=== PATIENT | male | born 1945 | race Two or more races ===

== ENCOUNTER 2022-07-22 11:15 | Emergency (ER) | payer OTHER ==
[~2022-07-22] VITALS: Ht 170.2 cm; Wt 91.6 kg
[2022-07-22] MEDS ORDERED: CRESTOR40 MG PO (11:37)
[2022-07-22] MEDS ORDERED: AVAPRO300 MG PO (11:38)
== END 2022-07-22 15:56 | disposition home or self-care (01) ==
LOC: ER 11:15
DX: N18.30 Chronic kidney disease, stage 3 unspecified (principal); D64.9 Anemia, unspecified; Z86.73 Personal history of transient ischemic attack (TIA), and cerebral infarction without residual deficits; E11.9 Type 2 diabetes mellitus without complications; E03.9 Hypothyroidism, unspecified

== ENCOUNTER 2022-08-22 06:18 | Inpatient (IN) | payer OTHER ==
[~2022-08-22] VITALS: Ht 170.2 cm; Wt 90.7 kg
[~2022-08-22 06:18] MED LIST: AVAPRO300 MG PO; CRESTOR40 MG PO
[2022-08-22] MEDS ORDERED: PANTOPRAZOLE SO40 MG PO (06:25)
[2022-08-22] MEDS ORDERED: ADULT LOW DOSE81 M1 PO (06:25)
[2022-08-22] MEDS ORDERED: GLIMEPIRIDE1 M1 PO (06:26)
[2022-08-22] MEDS ORDERED: CRESTOR40 MG PO (06:26)
[2022-08-22] MEDS ORDERED: ZYLOPRIM100 M1 PO (06:27)
[2022-08-22] MEDS ORDERED: NIFEDIPINE ER30 M1 PO (06:27)
[2022-08-22] MEDS ORDERED: ALDACTONE25 MG PO (06:27)
[2022-08-22] MEDS ORDERED: AVAPRO300 MG PO (06:29)
[2022-08-22] MEDS ORDERED: HYDRALAZINE HCL50 MG PO (06:30)
[2022-08-23] MEDS ORDERED: B-122500 MCG (09:32)
[2022-08-23] MEDS ORDERED: CARVEDILOL12.5 M1 (09:32)
[2022-08-23] MEDS ORDERED: VITAMIN B-1100 MG (09:32)
[2022-08-23] MEDS ORDERED: VITAMIN D3250 MCG (09:32)
[2022-08-23] MEDS ORDERED: ALLOPURINOL300 MG (09:32)
[2022-08-23] MEDS ORDERED: FARXIGA10 MG (09:33)
[2022-08-23] MEDS ORDERED: ACARBOSE50 MG (09:33)
[2022-08-23] MEDS ORDERED: HYDROCHLOROTHIA50 MG (09:33)
[2022-08-23] MEDS ORDERED: DOXAZOSIN MESYLA8 MG (09:33)
[2022-08-23] MEDS ORDERED: METFORMIN HCL1000 M3 (09:33)
[2022-08-23] MEDS ORDERED: GLIMEPIRIDE4 M1 (09:33)
[2022-08-23] MEDS ORDERED: FOLIC ACID1 MG (09:33)
== END 2022-08-24 19:52 | disposition home or self-care (01) | DRG 641 ==
LOC: ER 06:18 → MEDI 17:22
PROVIDERS: ADMIT Internal Medicine; ATTEND Internal Medicine
PROC: B246ZZZ Ultrasonography of Right and Left Heart (ICD-10-PCS; principal; 2022-08-22)
PROC: 4A12X4Z Monitoring of Cardiac Electrical Activity, External Approach (ICD-10-PCS; 2022-08-22)
DX: E87.5 Hyperkalemia (principal); N17.8 Other acute kidney failure; E86.0 Dehydration; K52.9 Noninfective gastroenteritis and colitis, unspecified; I12.9 Hypertensive chronic kidney disease with stage 1 through stage 4 chronic kidney disease, or unspecified chronic kidney disease; E11.22 Type 2 diabetes mellitus with diabetic chronic kidney disease; N18.30 Chronic kidney disease, stage 3 unspecified; D64.9 Anemia, unspecified; E86.9 Volume depletion, unspecified; R51.9 Headache, unspecified; Z79.84 Long term (current) use of oral hypoglycemic drugs; Z87.891 Personal history of nicotine dependence; Z20.822 Contact with and (suspected) exposure to COVID-19